=== PATIENT | male | born 1990 | race Caucasian/White ===

== ENCOUNTER 2018-04-09 14:16 | Emergency (ER) | payer BC, OTHER ==
[~2018-04-09] VITALS: Ht 193 cm; Wt 91.9 kg
[2018-04-09] MEDS ORDERED: KETOROLAC 30 MG/1 ML ONE (15:25)
[2018-04-09] MEDS ORDERED: HYDROcodone/APAP 5/325 TABLET ONE (15:25)
[2018-04-09] MEDS ORDERED: KETOROLAC 30 MG/1 ML IM ONE (15:30)
[2018-04-09] MEDS ORDERED: HYDROcodone/APAP 5/325 TABLET PO ONE (15:30)
[2018-04-09 15:31] LABS: CULTURE INDICATED? YES; MICROSCOPIC INDICATED
[2018-04-09 16:51] VITALS: BP 122/64
== END 2018-04-09 16:53 | disposition home or self-care (01) ==
LOC: ED 16:12
DX: S22.32XA Fracture of one rib, left side, initial encounter for closed fracture (principal); G89.11 Acute pain due to trauma; M25.552 Pain in left hip; M25.561 Pain in right knee; W19.XXXA Unspecified fall, initial encounter; Y93.89 Activity, other specified; Y99.8 Other external cause status; Y92.89 Other specified places as the place of occurrence of the external cause
CPT/HCPCS: 71101; 72110; 73502; 73564; 81001; 87086; 96372; 99285; J1885